=== PATIENT | male | born 1985 | race Caucasian/White ===

== ENCOUNTER 2016-12-17 09:46 | Emergency (ER) | payer SELFPAY ==
--- NOTE | 2016-12-17 09:48 | ED.PDOC ---
History of Present Illness - General Chief Complaint: Problem Stated Complaint: dysuria Time Seen by Provider: 12/17/16 09:46 Source: patient, RN notes reviewed, Vital Signs reviewed Additional Information: 2 days of dysuria. Pt thinks it is related to his latest partner. He reports some occasional clear discharge and the sensation of "pissing razor blades". - History of Present Illness Quality: moderate Activites at Onset: none Improving Factors: nothing Allergies/Adverse Reactions: Allergies Cinnamon Allergy (Verified 04/17/16 22:10) Home Medications: Ambulatory Orders Clonazepam 1 mg PO BID PRN #14 tab 10/31/15 Naproxen Sodium 1,000 mg PO BID 10/31/15 Review of Systems - Review of Systems Constitutional: States: no symptoms reported EENTM: States: no symptoms reported Respiratory: States: no symptoms reported Cardiology: States: no symptoms reported Gastrointestinal/Abdominal: States: no symptoms reported Genitourinary: States: see HPI, discharge - clear, dysuria Musculoskeletal: States: no symptoms reported Skin: States: no symptoms reported Neurological: States: no symptoms reported Endocrine: States: no symptoms reported Hematologic/Lymphatic: States: no symptoms reported Past Medical History (General) - Patient Medical History Hx Seizures: No Hx Stroke: No Hx Asthma: No Hx Hypertension: No Hx Diabetes: No Hx MRSA: No - Social History Hx Tobacco Use: Yes Family Medical History - Family History Mother Family History: Unknown Physical Exam - Physical Exam General Appearance: Alert, Comfortable, No apparent distress, Well Developed, Well Groomed, Well Hydrated, Well Nourished Eyes, Ears, Nose, Throat Exam: PERRL/EOMI Neck: non-tender, full range of motion, supple, normal inspection Cardiovascular/Respiratory: regular rate, rhythm, normal peripheral pulses, no respiratory distress Male Genital Exam: normal genitalia, other - no urethral discharge appreciated at this time. 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 Patient stable in no distress. Will d/c after Rocephin and Azithro. Advised, no intercourse x 1 week. Departure - Departure Clinical Impression: Dysuria Time of Disposition: 10:15 Disposition: Discharge to Home or Self Care Condition: Good Instructions: How to Detect and Treat STDs Referrals: Bc Olguin MD [Primary Care Provider] - 1-2 Weeks Home Medications: Ambulatory Orders Clonazepam 1 mg PO BID PRN #14 tab 10/31/15 Naproxen Sodium 1,000 mg PO BID 10/31/15 Additional Instructions: Return to ER if condition worsens. Call Theodore for results in 5 to 7 days. Stay well hydrated with water. No intercourse for 7 days.
[2016-12-17] MEDS ORDERED: AZITHROMYCIN 250 MG TAB PO ONE (09:52)
[2016-12-17] MEDS ORDERED: CEFTRIAXONE SODIUM IM ONE (09:52)
[2016-12-17] MEDS ORDERED: SODIUM CHL 0.9% IM ONE (09:52)
[2016-12-17] MEDS ORDERED: cefTRIAXone SODIUM 1 GM VIAL ONE (10:05)
[2016-12-17] MEDS ORDERED: LIDOCAINE 1% 10 ML VIAL INJ ONE (10:07)
[2016-12-17 10:29] VITALS: BP 128/79; TEMP 98.8; O2SAT 95
== END 2016-12-17 10:40 | disposition home or self-care (01) ==
LOC: ER 09:46
DX: R30.0 Dysuria (principal); Z87.891 Personal history of nicotine dependence
CPT/HCPCS: J0696; Q0144